=== PATIENT | male | born 1975 | race Caucasian/White ===

== ENCOUNTER 2017-05-16 15:50 | Observation (INO) | payer OTHER ==
[2017-05-16 16:01] VITALS: BP 143/86; PULSE 94; RESP 16; O2SAT 98
[2017-05-16 16:23] VITALS: TEMP 98.7
--- NOTE | 2017-05-16 17:13 | ED PDOC ---
HPI: General Adult Time Seen by Provider: 05/16/17 16:30 Chief Complaint (Nursing): Abdominal Pain History Per: Patient Additional Complaint(s): Pt. states for the past 2-3 days he's had LLQ abdominal pain and bloating. He was seen by his PMD, Dr. Awan who instructed him to come to ED for further evaluation. Reports stools have been soft but not watery. Denies vomiting, diarrhea, fever, melena, hematochezia, BRBPR, hematemesis. Past Medical History Vital Signs: Last Vital Signs Temp 98.7 F 05/16/17 15:58 Pulse 94 H 05/16/17 15:58 Resp 16 05/16/17 15:58 BP 143/86 05/16/17 15:58 Pulse Ox 98 05/16/17 19:51 - Medical History PMH: Asthma - Family History Family History: States: No Known Family Hx - Allergies Allergies/Adverse Reactions: Allergies Allergy/AdvReac Type Severity Reaction Status Date / Time No Known Allergies Allergy Verified 05/16/17 16:43 - Laboratory Results Result Diagrams: 05/16/17 17:00 05/16/17 17:15 - ECG O2 Sat by Pulse Oximetry: 98 ED OBSERVATION Discharge: Yes Date of observation admission: 05/16/17 Time of observation admission: 16:44 - Progress Note Progress Note: 05/16/17 16:[address] abd/pelvis ordered. 05/16/17 19:49 CT abd/pelvis: There is a segment of wall thickening at the junction of the sigmoid and descending colon with diverticula and associated inflammatory changes, consistent in appearance with acute diverticulitis.As an underlying malignancy cannot be entirely excluded, a follow-up examination after a course of treatment is recommended if clinically warranted. Cipro 400mg IV, flagyl 500mg PO ordered. 05/16/17 20:[address] Awan Pt. informed of results. Disposition - Clinical Impression Clinical Impression: Diverticulitis - Patient ED Disposition Is Patient to be Admitted: No - Disposition Disposition: Routine/Home Disposition Time: 20:17 Condition: STABLE
[2017-05-16 17:35] LABS: BASO % 0.2 % (0.0-2.0); EOS # 0.1 K/uL (0.0-0.7); EOS % 0.8 % (0.0-4.0); HEMATOCRIT 47.1 % (35.0-51.0); LYMPH % 17.6 % (20.0-40.0); MEAN CELL VOLUME 87.2 fl (80.0-94.0); MEAN CORPUSCULAR HEMOGLOBIN 28.6 pg (27.0-31.0); MEAN CORPUSCULAR HGB CONC 32.8 g/dL (33.0-37.0); MEAN PLATELET VOLUME 9.5 fl (7.2-11.7); MONO % 8.6 % (0.0-10.0); NEUT # 8.2 K/uL (1.8-7.0); NEUT % 72.8 % (50.0-75.0); NRBC % 0.1 % (0.0-0.0); RED CELL DISTRIBUTION WIDTH 13.1 % (11.5-14.5); WHITE BLOOD COUNT 11.2 K/uL (4.8-10.8)
[2017-05-16 17:54] LABS: ALB/GLOB RATIO 1.4 (1.0-2.1); ALKALINE PHOSPHATASE 119 U/L (38-126); ALT/SGPT 40 U/L (21-72); AST/SGOT 29 U/L (17-59); BILIRUBIN,TOTAL 1.1 mg/dl (0.2-1.3); BLOOD UREA NITROGEN 20 mg/dl (9-20); CALCIUM 9.9 mg/dL (8.4-10.2); CARBON DIOXIDE 26 mmol/L (22-30); CHLORIDE 99 mmol/L (98-107); GFR AFRICAN-AMERICAN > 60; GLUCOSE,RANDOM 106 mg/dL (75-110); SODIUM 141 mmol/l (132-148); TOTAL PROTEIN 7.9 G/DL (6.3-8.2)
[2017-05-16] MEDS ORDERED: Sodium Chloride 0.9% 50 ML IV ONE (18:24)
[2017-05-16] MEDS ORDERED: Iohexol 300 100 ML IJ ONE (18:24)
[2017-05-16] MEDS ORDERED: Ciprofloxacin 400mg/200ml D5W 400 MG/200 ML BAG IVPB STA (19:50)
[2017-05-16] MEDS ORDERED: metroNIDAZOLE 500mg/100ml NS 100 ML IVPB STA (19:50)
[2017-05-16] MEDS ORDERED: Ciprofloxacin 400mg/200ml D5W 400 MG/200 ML BAG IVPB ONE (20:27)
--- NOTE | 2017-05-17 08:39 | CT ---
PROCEDURE: CT Abdomen and Pelvis with contrast HISTORY: LLQ abdominal pain COMPARISON: None. TECHNIQUE: Contrast dose: 95 mL of Omnipaque 300. Axial and reformatted coronal and sagittal CT images of the abdomen and pelvis were obtained after IV contrast administration. Radiation dose: Total exam DLP = 723.78 mGy-cm. This CT exam was performed using one or more of the following dose reduction techniques: Automated exposure control, adjustment of the mA and/or kV according to patient size, and/or use of iterative reconstruction technique. FINDINGS: LOWER THORAX: Unremarkable. LIVER: Unremarkable. No gross lesion or ductal dilatation. GALLBLADDER AND BILE DUCTS: Unremarkable. PANCREAS: Unremarkable. No gross lesion or ductal dilatation. SPLEEN: Unremarkable. ADRENALS: Unremarkable. No mass. KIDNEYS AND URETERS: Unremarkable. No hydronephrosis. No solid mass. VASCULATURE: Unremarkable. No aortic aneurysm. BOWEL: There are scattered colonic diverticulosis. There is short segment of proximal sigmoid colon wall thickening surrounding with inflammatory changes and contain diverticula. Findings suggestive of acute diverticulitis. The possibility of underlying neoplasm is not totally excluded. No evidence of bowel obstruction. No evidence of pneumatosis. APPENDIX: There is no evidence of acute appendicitis. PERITONEUM: Unremarkable. No free fluid. No free air. LYMPH NODES: Mildly enlarged mesenteric lymph nodes at the left lower BLADDER: Unremarkable. REPRODUCTIVE: Unremarkable. BONES: No acute fracture. OTHER FINDINGS: None. IMPRESSION: Inflammatory changes surrounding the proximal sigmoid colon which contains diverticula suggestive of acute diverticulitis. Segmental wall thickening seen at the proximal sigmoid colon likely due to recurrent diverticulitis. The possibility of underlying infiltrate or tumor is less likely but not totally excluded. Small amount of fluid adjacent to the sigmoid colon may represent small perforation. No CT evidence of discrete abscess formation or free air. Otherwise no evidence of acute pathology in the abdomen and pelvis. Preliminary report was submitted by [facility].
== END 2017-05-16 22:18 | disposition home or self-care (01) ==
LOC: H.ER 15:50 → H.EROBSV 16:44
PROVIDERS: ADMIT Emergency Medicine; ATTEND Emergency Medicine
DX: K57.92 Diverticulitis of intestine, part unspecified, without perforation or abscess without bleeding (principal); J45.909 Unspecified asthma, uncomplicated
CPT/HCPCS: 74177; 80053; 82948; 85025; 87040; 99283; G0378; J0744; Q9967